=== PATIENT | male | born 1990 | race Caucasian/White ===

== ENCOUNTER 2017-03-02 12:37 | Emergency (ER) | payer BC ==
[2017-03-02 13:41] LABS: COLOR PALE YELLOW; LEUKOCYTE ESTERASE,URINE NEGATIVE (NEGATIVE); NITRITE,URINE NEGATIVE (NEGATIVE)
--- NOTE | 2017-03-02 13:41 | EDPHY ---
HPI/HX/ROS/PE/MDM Narrative: CHIEF COMPLAINT: Frequent urination HISTORY OF PRESENT ILLNESS: The patient is a 26 y/o male sent here from an urgent care who complains of frequent urination and urgency for 3 days. No fever or hematuria noted or dysuria. Went to Urgent care where dip stick was positive for blood. When he urinates he has mild discomfort and he still feels like he has to go even when he has finished. He did fall during martial arts practice on , 2 days ago, but this was after his symptoms began. Denies history of UTI or kidney stones. Denies use of condoms, genital sores, or a new sexual partner. Denies being kicked in the back or kidneys while doing martial arts. No fever, chills, chest pain, shortness of breath, palpitations, back pain, vomiting, diarrhea, headache, lightheadedness. REVIEW OF SYSTEMS: Aside from elements discussed in the HPI, a comprehensive 10-point review of systems was reviewed and is negative. PAST MEDICAL HISTORY: Splenectomy SOCIAL HISTORY: Student at , moved to [place] in December,. VITAL SIGNS: Reviewed by me GENERAL: Well-developed, well-nourished, resting comfortably in no respiratory distress. HEENT: Benign. LUNGS: Clear to auscultation bilaterally, no wheezes, rhonchi or rales. CARDIAC: Regular rate and rhythm, no rubs, murmurs or gallops. ABDOMEN: Soft, nontender, nondistended, bowel sounds normal. BACK: No CVA tenderness. : Normal external genitalia. No blood at urethral meatus. No penile lesions. No testicular tenderness or swelling. No inguinal adenopathy. EXTREMITIES: No trauma. No edema. Range of motion is normal throughout. NEURO: Alert and oriented, grossly nonfocal. SKIN: Warm and dry, no rash. PSYCHIATRIC: Normal mentation, no agitation. Portions of this note were transcribed by a medical biller coder. I personally performed a history, physical exam, medical decision making, and confirmed accuracy of information the transcribed note. ED Course: The patient is a 26 y/o male who presents with frequent urination. He was seen at an urgent care, which found hematuria. 1413: Urine dip stick negative. Labs ordered. All unremarkable. 1514: Reassessed patient and discussed laboratory results. will treat for prostatitis and check GC and chlymdia tests. He will be referred to Dr. Keith, urologist. Return precautions discussed; patient is comfortable with this plan. MDM: Diff dx considered included UTI, hematuria from trauma, myoglobinuria, prostatitis, hemorragic cystitis, STD. - Data Points Laboratory Results: Laboratory Results 03/02/17 14:12 03/02/17 14:12 Medications Given: Discontinued Medications Sodium Chloride (Ns) 1,000 mls @ 0 mls/hr IV ONCE ONE; Wide Open PRN Reason: Protocol Stop: 03/02/17 13:57 Last Admin: 03/02/17 14:12 Dose: 1,000 mls General Time Seen by Provider: 03/02/17 13:27 Initial Vital Signs: Initial Vital Signs Temperature (C) 37 C 03/02/17 12:49 Heart Rate 65 03/02/17 12:49 Respiratory Rate 16 03/02/17 12:49 Blood Pressure 129/91 H 03/02/17 12:49 O2 Sat (%) 94 03/02/17 12:49 O2 Delivery Mode Room Air Allergies/Adverse Reactions: No Known Allergies Allergy (Unverified 03/02/17 12:48) Home Medications: Medication Instructions Recorded Ciprofloxacin HCl [Ciprofloxacin] 500 mg PO BID #14 tab 03/02/17 Departure - Departure Disposition: Home, Routine, Self-Care Clinical Impression: Urgency of urination, Frequency of urination, possible prostatitis Condition: Good Instructions: Prostatitis (ED) Additional Instructions: 1. Take Ciprofloxacin as directed. 2. Followup with Dr. Keith, urologist, within the next week. 3. Followup with Dr. Canchola as your primary care physician. 4. You may call the ED in 2 days for results of your urine test. 5. Return to the ED if you experience fever, numbness, visible blood in the urine, abdominal pain, flank pain or other worsening of your condition Referrals: Carlitos Keith MD [Medical Doctor] - As per Instructions Morena Canchola MD [Medical Doctor] - As per Instructions Prescriptions: Ciprofloxacin HCl [Ciprofloxacin] 500 mg PO BID #14 tab Report Scribed for: Mariam Galarza Report Scribed by: Madelin Rashid Date of Report: 03/02/17 Time of Report: 14:11
[2017-03-02 13:49] LABS: MUCUS TRACE /lpf (NONE-1+)
[2017-03-02 13:50] LABS: RBC,URINE NONE SEEN /hpf (0-3)
[2017-03-02] MEDS ORDERED: NS 1,000 ML IV ONE (13:56)
[2017-03-02 14:26] LABS: % IMMATURE GRANULYOCYTES 0.2 % (0.0-1.1); ABSOLUTE IMMATURE GRANULOCYTES 0.01 10^3/uL (0.00-0.10); ADD DIFF? NO; ADD MORPH? NO; ADD SCAN? NO; ATYPICAL LYMPHOCYTE FLAG 10 (0-99); FRAGMENT RBC FLAG 0 (0-99); HEMOGLOBIN 14.7 g/dL (13.7-17.5); LEFT SHIFT FLG 0 (0-99); LIPEMIA HEMOLYSIS FLAG 90 (0-99); MEAN CELL HEMOGLOBIN 32.3 pg (27.9-34.1); MEAN CELL VOLUME 92.3 fL (81.5-99.8); PLATELET CLUMPS FLAG 0 (0-99); PLATELET COUNT 464 10^3/uL (150-400); RED BLOOD CELL COUNT 4.55 10^6/uL (4.40-6.38); RED CELL DISTRIBUTION WIDTH 13.2 % (11.5-15.2)
[2017-03-02 14:30] VITALS: TEMP 97.5; O2SAT 96
[2017-03-02 14:47] LABS: ANION GAP 12 mEq/L (8-16); CARBON DIOXIDE 24 mEq/l (22-31); CHLORIDE 104 mEq/L (97-110); CREATININE 0.8 mg/dL (0.7-1.3); GLOMERULAR FILTRATION RATE > 60; GLUCOSE 91 mg/dL (70-100); POTASSIUM 4.3 mEq/L (3.5-5.2); SODIUM 140 mEq/L (134-144)
[2017-03-02 15:42] VITALS: BP 126/71; PULSE 60; RESP 13
[2017-03-04 13:05] LABS: CHLAMYDIA AMPLIFICATION GENPRB NEGATIVE (NEGATIVE)
== END 2017-03-02 15:55 | disposition home or self-care (01) ==
DX: R35.0 Frequency of micturition (principal); E86.9 Volume depletion, unspecified; R39.15 Urgency of urination